=== PATIENT | male | born 1975 | race Caucasian/White ===

== ENCOUNTER 2017-01-21 15:17 | Emergency (ER) | payer MEDICAID ==
[~2017-01-21] VITALS: Ht 193 cm; Wt 124.0 kg
[~2017-01-21 15:17] MED LIST: ASPI-621 PO; CHOL20002 PO; CHOLESTEROL MEDICATION; DIAZ5TAB4 PO; HYDR-3138 PO; INSU100C5 SQ-INSULIN; INSU300I SQ-INSULIN; LISI-170 PO; LISI40TA PO; LOVA40TA2 PO; NPH,100I SQ; POTA20TA6 PO
[2017-01-21 15:29] VITALS: BP 138/95
== END 2017-01-21 16:58 | disposition home or self-care (01) ==
LOC: ED 16:35
DX: S60.221A Contusion of right hand, initial encounter (principal); E11.9 Type 2 diabetes mellitus without complications; E78.00 Pure hypercholesterolemia, unspecified; F17.210 Nicotine dependence, cigarettes, uncomplicated; I10 Essential (primary) hypertension; J45.909 Unspecified asthma, uncomplicated; X58.XXXA Exposure to other specified factors, initial encounter; Y93.89 Activity, other specified; Y99.8 Other external cause status; Y92.009 Unspecified place in unspecified non-institutional (private) residence as the place of occurrence of the external cause
CPT/HCPCS: 29125